=== PATIENT | male | born 1960 | race Two or more races ===

== ENCOUNTER 2018-03-19 04:16 | Emergency (ER) | payer SELFPAY ==
[2018-03-19 04:35] VITALS: RESP 16
[2018-03-19 04:36] VITALS: O2SAT 100
--- NOTE | 2018-03-19 06:27 | ED PDOC ---
HPI: Psych/Substance Abuse Time Seen by Provider: 03/19/18 04:20 Chief Complaint (Nursing): Alcohol Ingestion Chief Complaint (Provider): Alcohol Ingestion History Per: Patient History/Exam Limitations: no limitations Onset/Duration Of Symptoms: Hrs Current Symptoms Are (Timing): Better Modifying Factor(s): Alcohol Additional Complaint(s): 57 year old homeless male was brought to the ER for possible alcohol intoxication. He admits to drinking alcohol today Patient does not have any other complaints, head injury or fall. PMD: No Family Provider Past Medical History Reviewed: Historical Data, Nursing Documentation, Vital Signs Vital Signs: Last Vital Signs Temp 98.1 F 03/19/18 04:32 Pulse 85 03/19/18 04:32 Resp 16 03/19/18 04:32 BP 195/95 H 03/19/18 04:32 Pulse Ox 100 03/19/18 04:32 - Medical History PMH: No Chronic Diseases - Surgical History Surgical History: No Surg Hx - Family History Family History: States: Unknown Family Hx - Social History Current smoker - smoking cessation education provided: Yes (a pack and half) Alcohol: Social Drugs: Denies - Allergies Allergies/Adverse Reactions: Allergies Allergy/AdvReac Type Severity Reaction Status Date / Time Unobtainable Allergy Verified 03/19/18 04:35 Review of Systems ROS Statement: Except As Marked, All Systems Reviewed And Found Negative Neurological: Negative for: Other (head injury) Psych: Negative for: Suicidal ideation (homicidal ideation ) Physical Exam - Reviewed Nursing Documentation Reviewed: Yes Vital Signs Reviewed: Yes - Physical Exam Appears: Positive for: Non-toxic (disheveled), No Acute Distress (disheveled) Head Exam: Positive for: ATRAUMATIC, NORMAL INSPECTION, NORMOCEPHALIC Skin: Positive for: Normal Color, Warm, Dry Eye Exam: Positive for: EOMI, Normal appearance, PERRL ENT: Positive for: Normal ENT Inspection Neck: Positive for: Normal, Painless ROM, Supple. Negative for: Decreased ROM Cardiovascular/Chest: Positive for: Regular Rate, Rhythm. Negative for: Murmur Respiratory: Positive for: Normal Breath Sounds. Negative for: Decreased Breath Sounds, Wheezing, Respiratory Distress Gastrointestinal/Abdominal: Positive for: Normal Exam, Bowel Sounds, Soft. Negative for: Tenderness, Guarding, Rebound Back: Positive for: Normal Inspection Extremity: Positive for: Normal ROM. Negative for: Tenderness, Pedal Edema, Deformity Neurologic/Psych: Positive for: Alert, Oriented (x3) - Laboratory Results Result Diagrams: 03/19/18 06:30 03/19/18 06:27 - ECG O2 Sat by Pulse Oximetry: 100 (RA) Pulse Ox Interpretation: Normal Medical Decision Making Medical Decision Making: Time: 528 Initial Plan: alcohol ingestion rule out electrolyte abnormality, pending sobriety \--Alcohol Serum --Accucheck --CBC w/ Differential --CMP --Reevaluation Time: 07 etoh 35 pt awake, alert, coherent, in no distress. stable gait. pt denies headache, dizziness, or recent trauma. pt will be dc-ed home. pts bp elevated. instructed need to follow up in the clinic for further management of bp. DX: alcohol intoxication, elevated bp Scribe Attestation: Documented by Long Mathias, acting as a scribe for Maribell Ortega MD. Provider Scribe Attestation: All medical record entries made by the Scribe were at my direction and personally dictated by me. I have reviewed the chart and agree that the record accurately reflects my personal performance of the history, physical exam, medical decision making, and the department course for this patient. I have also personally directed, reviewed, and agree with the discharge instructions and disposition. Disposition - Clinical Impression Clinical Impression: Alcohol ingestion - Patient ED Disposition Is Patient to be Admitted: No Counseled Patient/Family Regarding: Studies Performed, Diagnosis, Need For Followup - Disposition Referrals: [facility] [Outside] [facility] [Outside] Disposition: Transfer of Care Disposition Time: 07:00 Condition: IMPROVED Additional Instructions: follow up in the clinic in 2 days you will need management of your blood pressure return to the ED with any worsening or concerning symptoms Instructions: Alcohol Use - When Is Drinking a Problem? Forms: [facility] (C[place] Rican) Patient Signed Over To: Nancy Lemus Handoff Comments: pending sobriety
[2018-03-19 06:44] LABS: BASO # 0.1 K/uL (0.0-0.2); BASO % 0.7 % (0.0-2.0); EOS # 0.7 K/uL (0.0-0.7); EOS % 7.8 % (0.0-4.0); LYMPH # 1.9 K/uL (1.0-4.3); LYMPH % 22.3 % (20.0-40.0); MEAN CELL VOLUME 96.6 fl (80.0-94.0); MEAN CORPUSCULAR HEMOGLOBIN 33.4 pg (27.0-31.0); MEAN CORPUSCULAR HGB CONC 34.6 g/dL (33.0-37.0); MEAN PLATELET VOLUME 9.7 fl (7.2-11.7); MONO # 0.8 K/uL (0.0-0.8); MONO % 9.5 % (0.0-10.0); NEUT % 59.7 % (50.0-75.0); RBC 4.2 Mil/uL (4.40-5.90); RED CELL DISTRIBUTION WIDTH 13.5 % (11.5-14.5); WHITE BLOOD COUNT 8.4 K/uL (4.8-10.8)
[2018-03-19 06:59] LABS: ALB/GLOB RATIO 1.3 (1.0-2.1); ALBUMIN 3.8 g/dL (3.5-5.0); ALT/SGPT 36 U/L (21-72); AST/SGOT 68 U/L (17-59); BLOOD UREA NITROGEN 2 mg/dl (9-20); CALCIUM 8.8 mg/dL (8.4-10.2); GFR NON-AFRICAN AMERICAN > 60
[2018-03-19 07:20] VITALS: BP 154/96
[2018-03-19 07:29] VITALS: PULSE 82; TEMP 98.4
== END 2018-03-19 07:29 | disposition home or self-care (01) ==
LOC: H.ER 04:16
DX: F10.129 Alcohol abuse with intoxication, unspecified (principal); F17.200 Nicotine dependence, unspecified, uncomplicated; Z59.0 Homelessness
CPT/HCPCS: 80053; 85025; 99283; G0480

== ENCOUNTER 2018-05-02 20:33 | Emergency (ER) | payer MEDICAID ==
[2018-05-02 21:47] VITALS: TEMP 97.9
[2018-05-02 21:49] LABS: BASO # 0.1 K/uL (0.0-0.2); BASO % 1.1 % (0.0-2.0); EOS # 0.6 K/uL (0.0-0.7); EOS % 6.1 % (0.0-4.0); HEMOGLOBIN 12.9 g/dL (12.0-18.0); LYMPH # 1.8 K/uL (1.0-4.3); LYMPH % 18.9 % (20.0-40.0); MEAN CELL VOLUME 95.6 fl (80.0-94.0); MEAN CORPUSCULAR HEMOGLOBIN 33.3 pg (27.0-31.0); MEAN CORPUSCULAR HGB CONC 34.8 g/dL (33.0-37.0); MEAN PLATELET VOLUME 8.5 fl (7.2-11.7); MONO % 10.5 % (0.0-10.0); NEUT # 5.9 K/uL (1.8-7.0); NEUT % 63.4 % (50.0-75.0); NRBC % 0.1 % (0.0-0.0); RBC 3.86 Mil/uL (4.40-5.90); RED CELL DISTRIBUTION WIDTH 13.1 % (11.5-14.5); WHITE BLOOD COUNT 9.4 K/uL (4.8-10.8)
[2018-05-02 22:08] LABS: ALB/GLOB RATIO 1.1 (1.0-2.1); ALBUMIN 3.9 g/dL (3.5-5.0); BLOOD UREA NITROGEN 12 mg/dl (9-20); CALCIUM 8.6 mg/dL (8.4-10.2); GFR NON-AFRICAN AMERICAN > 60
[2018-05-02 22:21] LABS: ALT/SGPT 22 U/L (21-72); AST/SGOT 47 U/L (17-59)
[2018-05-02 22:57] VITALS: RESP 18
--- NOTE | 2018-05-03 04:20 | ED PDOC ---
HPI: Psych/Substance Abuse Time Seen by Provider: 05/02/18 20:49 Chief Complaint (Nursing): Substance Abuse Chief Complaint (Provider): etoh History Per: EMS Additional Complaint(s): 57 y/o male brought in by EMS for suspected alcohol intoxication. +Alcohol on breath. HPI slightly limited due to patient's current state Past Medical History Reviewed: Historical Data, Nursing Documentation, Vital Signs Vital Signs: Last Vital Signs Temp 97.9 F 05/02/18 21:06 Pulse 74 05/03/18 03:12 Resp 18 05/03/18 03:12 BP 116/72 05/03/18 03:12 Pulse Ox 95 05/03/18 03:12 - Medical History PMH: No Chronic Diseases - Family History Family History: States: No Known Family Hx - Allergies Allergies/Adverse Reactions: Allergies Allergy/AdvReac Type Severity Reaction Status Date / Time Unobtainable Allergy Verified 05/03/18 08:50 Review of Systems ROS Statement: Except As Marked, All Systems Reviewed And Found Negative Physical Exam - Reviewed Nursing Documentation Reviewed: Yes Vital Signs Reviewed: Yes - Physical Exam Appears: Positive for: Well, Non-toxic, No Acute Distress (sleeping) Head Exam: Positive for: ATRAUMATIC, NORMAL INSPECTION, NORMOCEPHALIC Skin: Positive for: Normal Color Eye Exam: Positive for: Normal appearance, EOMI, PERRL ENT: Positive for: Normal ENT Inspection Cardiovascular/Chest: Positive for: Regular Rate, Rhythm Respiratory: Positive for: Normal Breath Sounds Gastrointestinal/Abdominal: Positive for: Normal Exam Back: Positive for: Normal Inspection Extremity: Positive for: Normal ROM Neurologic/Psych: Positive for: Alert (responds to tactile stimuli) - Laboratory Results Result Diagrams: 05/02/18 21:44 05/02/18 21:44 - ECG O2 Sat by Pulse Oximetry: 95 - Progress ED Course And Treament: labs, accucheck 22:30 Patient sleeping; vitals stable on monitor 05/03/18 00:00 Patient sleeping; vitals stable on monitor 1:30 Patient sleeping; vitals stable on monitor 3:00 Patient awake, no distress 5:00 Patient awake, alert, oriented x3. Ambulating steady gait. Vitals stable Patient requires no further intervention in the ED and is stable for discharge at this time Disposition - Clinical Impression Clinical Impression: Alcohol abuse with intoxication - Patient ED Disposition Is Patient to be Admitted: No Counseled Patient/Family Regarding: Studies Performed, Diagnosis, Need For Followup - Disposition Disposition: Routine/Home Disposition Time: 05:00 Condition: STABLE Instructions: Alcohol Abuse and Alcoholism (DC)
[2018-05-03 10:50] VITALS: BP 112/52; PULSE 81
[2018-05-09 03:21] VITALS: O2SAT 95
== END 2018-05-03 06:30 | disposition home or self-care (01) ==
LOC: MERGE 20:33 → H.ER 20:33 → EDBD 20:33 → H.ER 05-03 06:30
DX: F10.129 Alcohol abuse with intoxication, unspecified (principal)

== ENCOUNTER 2018-06-10 20:43 | Emergency (ER) | payer MEDICAID ==
[2018-06-10 20:43] VITALS: BMI 21.1
[2018-06-10 20:49] VITALS: TEMP 98
--- NOTE | 2018-06-10 22:38 | ED PDOC ---
HPI: Psych/Substance Abuse Time Seen by Provider: 06/10/18 20:47 Chief Complaint (Nursing): Alcohol Ingestion Chief Complaint (Provider): Alcohol Ingestion ED Caveat: Intoxicated, Uncooperative History Per: EMS History/Exam Limitations: intoxication Onset/Duration Of Symptoms: Hrs Current Symptoms Are (Timing): Still Present Modifying Factor(s): Alcohol Additional Complaint(s): George Anthony is a 57 year old male well known to the ED and provider for multiple visits who was brought to the ED by EMS for evaluation of alcohol intoxication. Patient is uncooperative and not answering any questions. Further history is unobtainable due to patients intoxication and uncooperative behavior. MD: none provided Past Medical History Reviewed: Historical Data, Nursing Documentation, Vital Signs, Unable To Obtain Vital Signs: Last Vital Signs Temp 98.0 F 06/10/18 20:46 Pulse 74 06/10/18 21:48 Resp 20 06/10/18 21:48 BP 112/67 06/10/18 21:48 Pulse Ox 100 06/10/18 21:48 - Medical History PMH: Depression, Hypothyroidism, Pneumonia, Schizophrenia Denies: Diabetes, Hepatitis, HIV, HTN, Chronic Kidney Disease, Seizures, Sexually Transmitted Disease - Surgical History Surgical History: No Surg Hx - Family History Family History: States: Unknown Family Hx - Home Medications Home Medications: Ambulatory Orders Medication Instructions Recorded LORazepam [Ativan] 1 mg PO BID #28 tab 09/11/16 Levothyroxine [Synthroid] 25 mcg PO DAILY@0630 #14 tab 09/11/16 Risperidone [Risperdal] 3 mg PO BID #28 tablet 09/11/16 DiphenhydrAMINE [Benadryl] 25 mg PO ASDIR #1 packet 11/03/16 Hydrocortisone [Cortizone 2.5% 1 applic TOP TID #1 tube 11/03/16 CREAM] risperiDONE [RisperDAL Tab] 2 mg PO BID 30 Days #60 tab 05/12/17 Famotidine [Pepcid] 40 mg PO DAILY PRN #14 tab 08/06/17 Ondansetron ODT [Zofran ODT] 1 odt PO Q6 PRN #20 odt 08/06/17 Azithromycin [Zithromax] 250 mg PO DAILY #6 tab 05/10/18 Benzonatate 200 mg PO TID PRN #20 capsule 05/10/18 Azithromycin 250 mg PO DAILY #4 tablet 05/19/18 - Allergies Allergies/Adverse Reactions: Allergies Allergy/AdvReac Type Severity Reaction Status Date / Time No Known Allergies Allergy Verified 06/10/18 20:45 Review of Systems ROS Statement: Except As Marked, All Systems Reviewed And Found Negative Review Of Systems: ROS cannot be obtained secondary to pt's inabilty to answer questions. Physical Exam - Reviewed Nursing Documentation Reviewed: Yes Vital Signs Reviewed: Yes - Physical Exam Appears: Positive for: Non-toxic, No Acute Distress (intoxicated appearing) Head Exam: Positive for: ATRAUMATIC, NORMAL INSPECTION, NORMOCEPHALIC Skin: Positive for: Normal Color, Warm, Dry Eye Exam: Positive for: EOMI, Normal appearance, PERRL Neck: Positive for: Normal, Painless ROM, Supple Cardiovascular/Chest: Positive for: Regular Rate, Rhythm. Negative for: Murmur Respiratory: Positive for: Normal Breath Sounds. Negative for: Respiratory Distress Gastrointestinal/Abdominal: Positive for: Normal Exam, Soft. Negative for: Tenderness Extremity: Positive for: Normal ROM. Negative for: Deformity, Swelling Neurologic/Psych: Positive for: Alert, Gait (unsteady), Other (slurred speech, verbally abusive in ED, uncooperative). Negative for: Motor/Sensory Deficits - ECG O2 Sat by Pulse Oximetry: 100 (RA) Pulse Ox Interpretation: Normal - Critical Care Total Time (In Min): 30 Documented Critical Care: Time excludes all time spent performint seperately billable procedures Medical Decision Making Medical Decision Making: Time: 20:50 Impression: 57 year old male presenting for alcohol intoxication Plan: --Alcohol Serum --Glucose, POC --Ativan 2 mg IM --Haldol 5 mg IM --1:1 Observation --Accucheck Patient is verbally abusive in the ED and uncooperative. He proves to be a danger to himself and others, requiring chemical and physical sedation. 5:40 Patient is clinically sober for discharge home. Diagnosis is alcohol intoxication. Return precautions provided. Scribe Attestation: Documented by Ileana Vides, acting as a scribe for Ortiz Sprague MD. Provider Scribe Attestation: All medical record entries made by the Scribe were at my direction and personally dictated by me. I have reviewed the chart and agree that the record accurately reflects my personal performance of the history, physical exam, medical decision making, and the department course for this patient. I have also personally directed, reviewed, and agree with the discharge instructions and disposition. Disposition - Clinical Impression Clinical Impression: Alcohol abuse with intoxication delirium - Disposition Disposition Time: 05:40 Condition: STABLE Instructions: Alcohol Abuse and Alcoholism (DC) Forms: [facility] (Congolese)
[2018-06-11 04:37] VITALS: PULSE 66
[2018-06-11 04:38] VITALS: BP 106/63; RESP 17; O2SAT 100
== END 2018-06-11 06:05 | disposition home or self-care (01) ==
LOC: H.ER 20:43
DX: F10.129 Alcohol abuse with intoxication, unspecified (principal); Z86.59 Personal history of other mental and behavioral disorders; E03.9 Hypothyroidism, unspecified
CPT/HCPCS: 80320; 82948; 96372; 99284; J1630; J2060

== ENCOUNTER 2018-06-11 12:40 | Emergency (ER) | payer MEDICAID ==
[2018-06-11 12:40] VITALS: BMI 21.1
[2018-06-11 12:45] VITALS: PULSE 75
--- NOTE | 2018-06-11 14:03 | ED PDOC ---
HPI: Psych/Substance Abuse Time Seen by Provider: 06/11/18 13:08 Chief Complaint (Nursing): Alcohol Ingestion Chief Complaint (Provider): Alcohol Ingestion ED Caveat: Intoxicated History Per: Patient, EMS History/Exam Limitations: intoxication Current Symptoms Are (Timing): Still Present Modifying Factor(s): Alcohol Additional Complaint(s): 57 year old male with pmHx of alcohol abuse, depression, and schizophrenia, arrives to ED via EMS for an evaluation of alcohol intoxication. As per EMS, patient was found wandering the streets with an unsteady gait. Upon arrival to ED, a bottle of Azul was removed and discarded by RN from pocket. Patient is noted to be sleepy, refusing to answer questions, but shakes head when asked about bodily pain or fall. PCP: none provided Past Medical History Reviewed: Historical Data, Nursing Documentation, Vital Signs Vital Signs: Last Vital Signs Temp Pulse 75 06/11/18 12:43 Resp 18 06/11/18 12:43 BP 118/70 06/11/18 12:43 Pulse Ox 96 06/11/18 12:43 - Medical History PMH: Depression, Hypothyroidism, Pneumonia, Schizophrenia Denies: Diabetes, Hepatitis, HIV, HTN, Chronic Kidney Disease, Seizures, Sexually Transmitted Disease - Family History Family History: States: Unknown Family Hx - Home Medications Home Medications: Ambulatory Orders Medication Instructions Recorded LORazepam [Ativan] 1 mg PO BID #28 tab 09/11/16 Levothyroxine [Synthroid] 25 mcg PO DAILY@0630 #14 tab 09/11/16 Risperidone [Risperdal] 3 mg PO BID #28 tablet 09/11/16 DiphenhydrAMINE [Benadryl] 25 mg PO ASDIR #1 packet 11/03/16 Hydrocortisone [Cortizone 2.5% 1 applic TOP TID #1 tube 11/03/16 CREAM] risperiDONE [RisperDAL Tab] 2 mg PO BID 30 Days #60 tab 05/12/17 Famotidine [Pepcid] 40 mg PO DAILY PRN #14 tab 08/06/17 Ondansetron ODT [Zofran ODT] 1 odt PO Q6 PRN #20 odt 08/06/17 Azithromycin [Zithromax] 250 mg PO DAILY #6 tab 05/10/18 Benzonatate 200 mg PO TID PRN #20 capsule 05/10/18 Azithromycin 250 mg PO DAILY #4 tablet 05/19/18 - Allergies Allergies/Adverse Reactions: Allergies Allergy/AdvReac Type Severity Reaction Status Date / Time No Known Allergies Allergy Verified 06/10/18 20:45 Review of Systems Review Of Systems: ROS cannot be obtained secondary to pt's inabilty to answer questions. Physical Exam - Reviewed Nursing Documentation Reviewed: Yes Vital Signs Reviewed: Yes - Physical Exam Appears: Positive for: Non-toxic, No Acute Distress Head Exam: Positive for: ATRAUMATIC, NORMAL INSPECTION, NORMOCEPHALIC Skin: Positive for: Normal Color Eye Exam: Positive for: Conjunctival injection (bilaterally) ENT: Positive for: Normal ENT Inspection Cardiovascular/Chest: Positive for: Regular Rate, Rhythm Respiratory: Positive for: Normal Breath Sounds. Negative for: Wheezing, Respiratory Distress Gastrointestinal/Abdominal: Positive for: Normal Exam, Soft. Negative for: Tenderness Extremity: Positive for: Normal ROM (upper/lower) Neurologic/Psych: Positive for: Alert, Oriented, Mood/Affect (somnolent) - ECG O2 Sat by Pulse Oximetry: 96 (RA) Pulse Ox Interpretation: Normal Medical Decision Making Medical Decision Making: Time: 1345 Initial Plan: * Alcohol serum * Accucheck Time: 1400 --Alcohol: 227mg/dL. Patient is seen ambulating to bathroom with steady gait. Upon provider reevaluation, patient is clinically sober, medically stable, and requires no further treatment in the ED at this time. Patient will be discharged home. Counseling was provided and all questions were answered regarding diagnosis. There is agreement to discharge plan. Return if symptoms persist or worsen. Clinical Impression: Alcohol abuse with alcohol-induced disorder --- Scribe Attestation: Documented by Eda Hendrix, acting as a scribe for GAVINO Reed. Provider Scribe Attestation: All medical record entries made by the Scribe were at my direction and personally dictated by me. I have reviewed the chart and agree that the record accurately reflects my personal performance of the history, physical exam, medical decision making, and the department course for this patient. I have also personally directed, reviewed, and agree with the discharge instructions Disposition - Clinical Impression Clinical Impression: Alcohol abuse with alcohol-induced disorder - Patient ED Disposition Is Patient to be Admitted: No Counseled Patient/Family Regarding: Studies Performed, Diagnosis - Disposition Referrals: [facility] [Outside] Disposition: Routine/Home Disposition Time: 14:00 Condition: IMPROVED Additional Instructions: Recommend that you seek assistance with quitting alcohol. Instructions: Alcohol Abuse and Alcoholism (DC) Forms: [facility] (Tajik) Print Language: BRAZILIAN
[2018-06-11 15:02] VITALS: BP 121/81; RESP 15; O2SAT 98
== END 2018-06-11 15:01 | disposition home or self-care (01) ==
LOC: H.ER 12:40
DX: F10.188 Alcohol abuse with other alcohol-induced disorder (principal); E03.9 Hypothyroidism, unspecified; F20.9 Schizophrenia, unspecified; F32.9 Major depressive disorder, single episode, unspecified

== ENCOUNTER 2018-06-19 13:22 | Emergency (ER) | payer MEDICAID ==
[2018-06-19 13:22] VITALS: BMI 21.1
[2018-06-19] MEDS ORDERED: Permethrin 1% Kit 59 ML BOTTLE TOP ONE (14:26)
[2018-06-19 14:38] VITALS: RESP 18
--- NOTE | 2018-06-19 15:56 | ED PDOC ---
HPI: Psych/Substance Abuse Time Seen by Provider: 06/19/18 13:39 Chief Complaint (Nursing): Abnormal Skin Integrity Chief Complaint (Provider): Scalp itchiness History Per: Patient History/Exam Limitations: no limitations Onset/Duration Of Symptoms: Days Current Symptoms Are (Timing): Still Present Additional Complaint(s): 57 year old undomiciled male presents to the ED requesting a decontamination shower due to concern for lice. Patient reports he has had mild scalp itchiness for the past few days. [place], which prompted his concern for exposure to lice. Patient denies any other complaints. PMD: no family provider Past Medical History Reviewed: Historical Data, Nursing Documentation, Vital Signs Vital Signs: Last Vital Signs Temp 97.7 F 06/19/18 14:37 Pulse 80 06/19/18 14:37 Resp 18 06/19/18 14:37 BP 155/78 H 06/19/18 14:37 Pulse Ox 97 06/19/18 14:37 - Medical History PMH: Depression, Hypothyroidism, Pneumonia, Schizophrenia - Family History Family History: States: Unknown Family Hx - Living Arrangements Living Arrangements: Other (usp) - Social History Current smoker - smoking cessation education provided: Yes - Home Medications Home Medications: Ambulatory Orders Medication Instructions Recorded RX: LORazepam [Ativan] 1 mg PO BID #28 tab 09/11/16 RX: Levothyroxine [Synthroid] 25 mcg PO DAILY@0630 #14 tab 09/11/16 Risperidone [Risperdal] 3 mg PO BID #28 tablet 09/11/16 RX: DiphenhydrAMINE [Benadryl] 25 mg PO ASDIR #1 packet 11/03/16 RX: Hydrocortisone [Cortizone 2.5% 1 applic TOP TID #1 tube 11/03/16 CREAM] RX: risperiDONE [RisperDAL Tab] 2 mg PO BID 30 Days #60 tab 05/12/17 Famotidine [Pepcid] 40 mg PO DAILY PRN #14 tab 08/06/17 Ondansetron ODT [Zofran ODT] 1 odt PO Q6 PRN #20 odt 08/06/17 Azithromycin [Zithromax] 250 mg PO DAILY #6 tab 05/10/18 RX: Benzonatate 200 mg PO TID PRN #20 capsule 05/10/18 RX: Azithromycin 250 mg PO DAILY #4 tablet 05/19/18 RX: Permethrin 1% Kit [Nix 59 ml TP ONCE #1 kit 06/19/18 Complete Lice Elimination Kit 1%] - Allergies Allergies/Adverse Reactions: Allergies Allergy/AdvReac Type Severity Reaction Status Date / Time No Known Allergies Allergy Verified 06/10/18 20:45 Review of Systems ROS Statement: Except As Marked, All Systems Reviewed And Found Negative Constitutional: Negative for: Fever Respiratory: Negative for: Cough, Shortness of Breath Gastrointestinal: Negative for: Nausea, Vomiting, Abdominal Pain, Diarrhea Skin: Positive for: Other (mild scalp itchiness) Neurological: Negative for: Headache Physical Exam - Reviewed Nursing Documentation Reviewed: Yes Vital Signs Reviewed: Yes - Physical Exam Comments: GENERAL APPEARANCE: Patient is awake, alert, oriented x 3, in no acute distress, resting comfortably. SKIN: Warm, dry; (-) cyanosis HEAD: (-) hematoma or tenderness. (+) scattered excoriations (-)evidence of cellulitis. No visualized lice or eggs however PE s/p from decon shower ENMT: Mucous membranes moist. Airway patent: (-) stridor. NECK: Supple, FROM HEART AND CARDIOVASCULAR: (-) irregularity CHEST AND RESPIRATORY: (-) rales, (-) rhonchi, (-) wheezes; breath sounds equal. Respirations even and nonlabored. ABDOMEN: Soft, (-) distention, (-) tenderness, (-) guarding. NEURO AND PSYCH: Mental status as above.Affect: flat. (-) facial asymmetry. Speech: clear. Gait: steady. - ECG O2 Sat by Pulse Oximetry: 97 (RA) Pulse Ox Interpretation: Normal Medical Decision Making Medical Decision Making: Time: 1425 Initial impression: concern for lice, scalp irriataion Initial plan: Permethrin 1% kit Reevaluation 1540 Repeat BP: 138/78 On re-evaluation, patient reports improvement of symptoms. On exam, patient remains AAOx3, in no acute distress. Vitals stable. Lab /Diagnostic results d/w the patient in great detail. Diagnosis of scalp irritation, concern for lice d/w the patient. Based on history, exam and diagnostic results, plan will be for outpatient follow up with clinic. Patient instructed to follow-up with pmd / referral provided / the clinic in 1- 2 days without fail. Advised to take medication as prescribed. Return to the emergency room at any time for any new or worsening symptoms. Patient states he fully agrees with and understands discharge instructions. States that he agrees with the plan and disposition. Verbalized and repeated discharge instructions and plan. I have given the patient opportunity to ask any additional questions. -- Scribe Attestation: Documented by Long Mathias, acting as a scribe for Kathy Zaman PA-C. Provider Scribe Attestation: All medical record entries made by the Scribe were at my direction and personally dictated by me. I have reviewed the chart and agree that the record accurately reflects my personal performance of the history, physical exam, medical decision making, and the department course for this patient. I have also personally directed, reviewed, and agree with the discharge instructions and disposition. Disposition - Clinical Impression Clinical Impression: Scalp irritation, Head lice - Patient ED Disposition Is Patient to be Admitted: No Counseled Patient/Family Regarding: Studies Performed, Diagnosis, Need For Foll owup, Rx Given - Disposition Referrals: [facility] [Outside] Disposition: Routine/Home Disposition Time: 15:40 Condition: STABLE Additional Instructions: The emergency medical care you received today was directed at your acute symptoms. If you were prescribed any medication, please fill it and take as directed. It may take several days for your symptoms to resolve. Return to the Emergency Department if your symptoms worsen, do not improve, or if you have any other problems. Please contact your doctor in 2 days for re-evaluation and follow up / or call one of the physicians/clinics you have been referred to that are listed on the Patient Visit Information form that is included in your discharge packet. Bring any paperwork you were given at discharge with you along with any medications you are taking to your follow up visit. Our treatment cannot replace ongoing medical care by a primary care provider (PCP) outside of the emergency department. Prescriptions: RX: Permethrin 1% Kit [Nix Complete Lice Elimination Kit 1%] 59 ml TP ONCE #1 kit Instructions: Lice, Head Lice (DC) Forms: [facility] (Spanish) Print Language: LITHUANIAN - POA Present On Arrival: None
[2018-06-19 16:28] VITALS: BP 138/78; PULSE 78; TEMP 97.9
[2018-06-19 19:34] VITALS: O2SAT 97
== END 2018-06-19 17:29 | disposition home or self-care (01) ==
LOC: H.ER 13:22
DX: B85.0 Pediculosis due to Pediculus humanus capitis (principal); F17.200 Nicotine dependence, unspecified, uncomplicated; Z86.59 Personal history of other mental and behavioral disorders; E03.9 Hypothyroidism, unspecified

== ENCOUNTER 2018-08-09 22:56 | Emergency (ER) | payer MEDICAID ==
[2018-08-09 22:57] VITALS: BMI 21.1
[2018-08-09 23:05] VITALS: RESP 16; O2SAT 99
[2018-08-09] MEDS ORDERED: Permethrin 5% CREAM TOP ONE (23:07)
--- NOTE | 2018-08-10 00:01 | ED PDOC ---
HPI: Skin/Bite Injury Time Seen by Provider: 08/09/18 23:06 Chief Complaint (Nursing): Abnormal Skin Integrity Chief Complaint (Provider): Abnormal Skin Integrity History Per: Patient History/Exam Limitations: no limitations Onset/Duration Of Symptoms: Unknown Additional Complaint(s): 57 y/o male with no significant PMHx presents to the ED complaining of skin abnormality, unknown onset. Patient reports having an itchy rash throughout his body. [facility]. He has no known sick contacts. Additionally denies fever. Past Medical History Reviewed: Historical Data, Nursing Documentation, Vital Signs Vital Signs: Last Vital Signs Temp 98.7 F 08/09/18 23:00 Pulse 91 H 08/09/18 23:00 Resp 16 08/09/18 23:00 BP 121/66 08/09/18 23:00 Pulse Ox 99 08/09/18 23:00 - Medical History PMH: Depression, Hypothyroidism, Pneumonia, Schizophrenia Denies: Diabetes, Hepatitis, HIV, HTN, Chronic Kidney Disease, Seizures, Sexually Transmitted Disease - Surgical History Surgical History: No Surg Hx - Family History Family History: States: Unknown Family Hx - Home Medications Home Medications: Ambulatory Orders Medication Instructions Recorded LORazepam [Ativan] 1 mg PO BID #28 tab 09/11/16 Levothyroxine [Synthroid] 25 mcg PO DAILY@0630 #14 tab 09/11/16 Risperidone [Risperdal] 3 mg PO BID #28 tablet 09/11/16 DiphenhydrAMINE [Benadryl] 25 mg PO ASDIR #1 packet 11/03/16 Hydrocortisone [Cortizone 2.5% 1 applic TOP TID #1 tube 11/03/16 CREAM] risperiDONE [RisperDAL Tab] 2 mg PO BID 30 Days #60 tab 05/12/17 Famotidine [Pepcid] 40 mg PO DAILY PRN #14 tab 08/06/17 Ondansetron ODT [Zofran ODT] 1 odt PO Q6 PRN #20 odt 08/06/17 Azithromycin [Zithromax] 250 mg PO DAILY #6 tab 05/10/18 Benzonatate 200 mg PO TID PRN #20 capsule 05/10/18 Azithromycin 250 mg PO DAILY #4 tablet 05/19/18 Permethrin 1% Kit [Nix Complete 59 ml TP ONCE #1 kit 06/19/18 Lice Elimination Kit 1%] - Allergies Allergies/Adverse Reactions: Allergies Allergy/AdvReac Type Severity Reaction Status Date / Time No Known Allergies Allergy Verified 08/09/18 23:00 Review of Systems ROS Statement: Except As Marked, All Systems Reviewed And Found Negative Constitutional: Negative for: Fever Skin: Positive for: Rash Physical Exam - Reviewed Nursing Documentation Reviewed: Yes Vital Signs Reviewed: Yes - Physical Exam Appears: Positive for: Well (patient looks unkempt), No Acute Distress Head Exam: Positive for: ATRAUMATIC, NORMAL INSPECTION, NORMOCEPHALIC Skin: Positive for: Rash (scattered excoriations without surrounding erythema, discharge, or swelling throughout body and extremities) ENT: Positive for: Normal ENT Inspection Neck: Positive for: Normal, Painless ROM Cardiovascular/Chest: Positive for: Regular Rate, Rhythm. Negative for: Murmur Respiratory: Negative for: Normal Breath Sounds Extremity: Positive for: Normal ROM. Negative for: Pedal Edema, Deformity Neurologic/Psych: Positive for: Alert, Oriented. Negative for: Motor/Sensory Deficits - ECG O2 Sat by Pulse Oximetry: 99 (RA) Pulse Ox Interpretation: Normal Medical Decision Making Medical Decision Making: Time: 23:07 Impression: skin abnormality Initial Plan: * Permethrin Scribe Attestation: Documented by Ramone Mendoza acting as a scribe for Nik Wilson PA-C. Provider Scribe Attestation: All medical record entries made by the Scribe were at my direction and personally dictated by me. I have reviewed the chart and agree that the record accurately reflects my personal performance of the history, physical exam, medical decision making, and the department course for this patient. I have also personally directed, reviewed, and agree with the discharge instructions and disposition. Disposition - Clinical Impression Clinical Impression: Scabies - Patient ED Disposition Is Patient to be Admitted: No - Disposition Referrals: [facility] [Outside] Disposition: Routine/Home Disposition Time: 23:08 Condition: STABLE Additional Instructions: FOLLOW UP WITH [facility] FOR FURTHER EVALUATION RETURN TO ED IMMEDIATELY IF SYMPTOMS WORSEN LAW ERICKANURIS, thank you for letting us take care of you today. Your provider was Live Garcia MD and you were treated for SKIN IRRITATION. The emergency medical care you received today was directed at your acute symptoms. If you were prescribed any medication, please fill it and take as directed. It may take several days for your symptoms to resolve. Return to the Emergency Department if your symptoms worsen, do not improve, or if you have any other problems. Please contact your doctor or call one of the physicians/clinics you have been referred to that are listed on the Patient Visit Information form that is included in your discharge packet. Bring any paperwork you were given at discharge with you along with any medications you are taking to your follow up visit. Our treatment cannot replace ongoing medical care by a primary care provider outside of the emergency department. Thank you for allowing the [facility] team to be part of your care today. If you had an X-Ray or CT scan: A Radiologist will review the ED reading if any change in treatment is needed we will contact you. If you had a blood, urine, or wound culture: It will take several days for the results, if any change in treatment is needed we will contact you. If you had an STI test: It will take 48 hours for the results. Please call after 1 week if you have not heard back. Instructions: Scabies (DC) Forms: [employer] (Khmer)
[2018-08-10 01:51] VITALS: BP 122/78; PULSE 76; TEMP 98.4
== END 2018-08-10 00:40 | disposition home or self-care (01) ==
LOC: H.ER 22:56
DX: B86 Scabies (principal)

== ENCOUNTER 2018-08-16 19:14 | Emergency (ER) | payer MEDICAID ==
[2018-08-16 19:14] VITALS: BMI 21.1
[2018-08-16 19:17] VITALS: BP 138/84; PULSE 72; RESP 16; TEMP 98; O2SAT 100
--- NOTE | 2018-08-16 20:20 | ED PDOC ---
HPI: Psych/Substance Abuse Time Seen by Provider: 08/16/18 19:24 Chief Complaint (Nursing): Alcohol Ingestion Chief Complaint (Provider): Alcohol Ingestion ED Caveat: Intoxicated History Per: Patient History/Exam Limitations: intoxication Onset/Duration Of Symptoms: Hrs Current Symptoms Are (Timing): Still Present Additional Complaint(s): 57 year old male who is a known ETOH abuser was brought to the ED by EMS after finding him sleeping in a vestibule of a building. Patient is intoxicated and is unable to answer any questions. Further history is unobtainable. PMD: none provided Past Medical History Reviewed: Historical Data, Nursing Documentation, Vital Signs, Unable To Obtain Vital Signs: Last Vital Signs Temp 98.0 F 08/16/18 19:16 Pulse 72 08/16/18 19:16 Resp 16 08/16/18 19:16 BP 138/84 08/16/18 19:16 Pulse Ox 100 08/16/18 19:16 - Medical History PMH: Depression, Hypothyroidism, Pneumonia, Schizophrenia Denies: Diabetes, Hepatitis, HIV, HTN, Chronic Kidney Disease, Seizures, Sexually Transmitted Disease - Family History Family History: States: Unknown Family Hx - Social History Current smoker - smoking cessation education provided: Yes Alcohol: > 2 Drinks/Day - Home Medications Home Medications: Ambulatory Orders Medication Instructions Recorded LORazepam [Ativan] 1 mg PO BID #28 tab 09/11/16 Levothyroxine [Synthroid] 25 mcg PO DAILY@0630 #14 tab 09/11/16 Risperidone [Risperdal] 3 mg PO BID #28 tablet 09/11/16 DiphenhydrAMINE [Benadryl] 25 mg PO ASDIR #1 packet 11/03/16 Hydrocortisone [Cortizone 2.5% 1 applic TOP TID #1 tube 11/03/16 CREAM] risperiDONE [RisperDAL Tab] 2 mg PO BID 30 Days #60 tab 05/12/17 Famotidine [Pepcid] 40 mg PO DAILY PRN #14 tab 08/06/17 Ondansetron ODT [Zofran ODT] 1 odt PO Q6 PRN #20 odt 08/06/17 Azithromycin [Zithromax] 250 mg PO DAILY #6 tab 05/10/18 Benzonatate 200 mg PO TID PRN #20 capsule 05/10/18 Azithromycin 250 mg PO DAILY #4 tablet 05/19/18 Permethrin 1% Kit [Nix Complete 59 ml TP ONCE #1 kit 06/19/18 Lice Elimination Kit 1%] - Allergies Allergies/Adverse Reactions: Allergies Allergy/AdvReac Type Severity Reaction Status Date / Time No Known Allergies Allergy Verified 08/16/18 19:16 Review of Systems ROS Statement: Except As Marked, All Systems Reviewed And Found Negative Review Of Systems: ROS cannot be obtained secondary to pt's inabilty to answer questions. Physical Exam - Reviewed Nursing Documentation Reviewed: Yes Vital Signs Reviewed: Yes - Physical Exam Appears: Positive for: Non-toxic, No Acute Distress Head Exam: Positive for: ATRAUMATIC, NORMAL INSPECTION, NORMOCEPHALIC Skin: Positive for: Normal Color, Warm, DRY Eye Exam: Positive for: EOMI, Normal appearance, PERRL Cardiovascular/Chest: Positive for: Regular Rate, Rhythm. Negative for: Murmur Respiratory: Positive for: Normal Breath Sounds. Negative for: Respiratory Distress Gastrointestinal/Abdominal: Positive for: Normal Exam, Soft. Negative for: Tenderness Extremity: Positive for: Normal ROM. Negative for: Deformity, Swelling Neurologic/Psych: Positive for: Other (somnolent ). Negative for: Motor/Sensory Deficits - ECG O2 Sat by Pulse Oximetry: 100 (RA) Pulse Ox Interpretation: Normal Medical Decision Making Medical Decision Making: Time: 19:30 Plan: --Accucheck --Alcohol Serum --- Scribe Attestation: Documented by, Ileana Vides acting as a scribe for Renetta Wharton PA-C. Provider Scribe Attestation: All medical record entries made by the Scribe were at my direction and personally dictated by me. I have reviewed the chart and agree that the record accurately reflects my personal performance of the history, physical exam, medical decision making, and the department course for this patient. I have also personally directed, reviewed, and agree with the discharge instructions and disposition. 22:26: re-evaluated: states that he cannot go to the snf. He has no physical complaints. Ambulated with steady gait. Disposition - Clinical Impression Clinical Impression: Alcohol abuse with alcohol-induced disorder - Patient ED Disposition Is Patient to be Admitted: No - Disposition Referrals: [facility] [Outside] Disposition: Routine/Home Disposition Time: 23:50 Condition: STABLE Additional Instructions: Refrain from drinking alcohol any further Instructions: Alcohol Abuse and Alcoholism (DC) Forms: [facility] (Irish) Print Language: HUNGARIAN
== END 2018-08-16 23:50 | disposition home or self-care (01) ==
LOC: H.ER 19:14
DX: F10.10 Alcohol abuse, uncomplicated (principal); E03.9 Hypothyroidism, unspecified; F17.200 Nicotine dependence, unspecified, uncomplicated; F20.9 Schizophrenia, unspecified; F32.9 Major depressive disorder, single episode, unspecified

== ENCOUNTER 2018-10-22 13:36 | Emergency (ER) | payer MEDICAID ==
[2018-10-22 13:36] VITALS: BMI 21.1
[2018-10-22 13:39] VITALS: BP 101/68; PULSE 84; RESP 18; O2SAT 98
--- NOTE | 2018-10-22 14:02 | ED PDOC ---
HPI: Psych/Substance Abuse Time Seen by Provider: 10/22/18 13:39 Chief Complaint (Nursing): Psychiatric Evaluation Chief Complaint (Provider): Psychiatric Evaluation History Per: Patient, EMS History/Exam Limitations: no limitations Onset/Duration Of Symptoms: Unknown Modifying Factor(s): Alcohol Additional Complaint(s): 57 y/o male brought in by EMS for alcohol intoxication. As per EMS, they were called as patient was found by a bystander sleeping on the ground. Patient is well known to provider and ED staff. Patient admits to drinking "a pint of tiffany young". Patient offers no complaints at this time but is requesting food. PMD: NO PROVIDER Past Medical History Reviewed: Historical Data, Nursing Documentation, Vital Signs Vital Signs: Last Vital Signs Temp Pulse 84 10/22/18 13:37 Resp 18 10/22/18 13:37 BP 101/68 10/22/18 13:37 Pulse Ox 98 10/22/18 13:37 - Medical History PMH: Depression, Hypothyroidism, Pneumonia, Schizophrenia Denies: Diabetes, Hepatitis, HIV, HTN, Chronic Kidney Disease, Seizures, Sexually Transmitted Disease - Surgical History Surgical History: No Surg Hx - Family History Family History: States: Unknown Family Hx - Social History Alcohol: > 2 Drinks/Day - Home Medications Home Medications: Ambulatory Orders Medication Instructions Recorded LORazepam [Ativan] 1 mg PO BID #28 tab 09/11/16 Levothyroxine [Synthroid] 25 mcg PO DAILY@0630 #14 tab 09/11/16 Risperidone [Risperdal] 3 mg PO BID #28 tablet 09/11/16 DiphenhydrAMINE [Benadryl] 25 mg PO ASDIR #1 packet 11/03/16 Hydrocortisone [Cortizone 2.5% 1 applic TOP TID #1 tube 11/03/16 CREAM] risperiDONE [RisperDAL Tab] 2 mg PO BID 30 Days #60 tab 05/12/17 Famotidine [Pepcid] 40 mg PO DAILY PRN #14 tab 08/06/17 Ondansetron ODT [Zofran ODT] 1 odt PO Q6 PRN #20 odt 08/06/17 Azithromycin [Zithromax] 250 mg PO DAILY #6 tab 05/10/18 Benzonatate 200 mg PO TID PRN #20 capsule 05/10/18 Azithromycin 250 mg PO DAILY #4 tablet 05/19/18 Permethrin 1% Kit [Nix Complete 59 ml TP ONCE #1 kit 06/19/18 Lice Elimination Kit 1%] - Allergies Allergies/Adverse Reactions: Allergies Allergy/AdvReac Type Severity Reaction Status Date / Time No Known Allergies Allergy Verified 08/16/18 19:16 Review of Systems ROS Statement: Except As Marked, All Systems Reviewed And Found Negative Psych: Positive for: Other (ALCOHOL INTOXICATION) Physical Exam - Reviewed Nursing Documentation Reviewed: Yes Vital Signs Reviewed: Yes - Physical Exam Appears: Positive for: No Acute Distress (but disheveled) Head Exam: Positive for: ATRAUMATIC Skin: Positive for: Normal Color Eye Exam: Positive for: Normal appearance Neck: Positive for: Normal Cardiovascular/Chest: Positive for: Regular Rate, Rhythm. Negative for: Murmur Respiratory: Positive for: Normal Breath Sounds. Negative for: Respiratory Distress Gastrointestinal/Abdominal: Positive for: Normal Exam, Soft. Negative for: Tenderness Extremity: Positive for: Normal ROM (upper/lower) Neurological/Psych: Positive for: Awake, Alert, Oriented (x3), Gait (steady and unassited), Other (slurred speech, alcohol on breath). Negative for: Motor/Sensory Deficits - ECG O2 Sat by Pulse Oximetry: 98 (RA) Pulse Ox Interpretation: Normal Medical Decision Making Medical Decision Making: Time: 1400 Plan: -- Finger Stick -- Finger stick is 71. Scribe Attestation: Documented by Bubba Jain, acting as a scribe Jose Wilson PA-C. Provider Scribe Attestation: All medical record entries made by the Scribe were at my direction and personally dictated by me. I have reviewed the chart and agree that the record accurately reflects my personal performance of the history, physical exam, medical decision making, and the department course for this patient. I have also personally directed, reviewed, and agree with the discharge instructions and disposition. Disposition - Clinical Impression Clinical Impression: Alcohol intoxication - Patient ED Disposition Is Patient to be Admitted: No - Disposition Referrals: [facility] [place] [Outside] Disposition: Routine/Home Disposition Time: 14:00 Condition: STABLE Instructions: Alcohol Use - When Is Drinking a Problem?, Alcohol Abuse and Alcoholism (DC) Forms: [employer] (Maltese)
== END 2018-10-22 14:05 | disposition home or self-care (01) ==
LOC: H.ER 13:36
DX: F10.129 Alcohol abuse with intoxication, unspecified (principal); E03.9 Hypothyroidism, unspecified; F20.9 Schizophrenia, unspecified; F32.9 Major depressive disorder, single episode, unspecified

== ENCOUNTER 2018-10-26 16:57 | Emergency (ER) | payer MEDICAID ==
[2018-10-26 17:01] VITALS: RESP 18; TEMP 97.8; O2SAT 96; BMI 32.5
--- NOTE | 2018-10-26 17:47 | ED PDOC ---
HPI: Psych/Substance Abuse Time Seen by Provider: 10/26/18 16:57 Chief Complaint (Nursing): Alcohol Ingestion Chief Complaint (Provider): Alcohol Intoxication ED Caveat: Intoxicated History Per: EMS History/Exam Limitations: intoxication Current Symptoms Are (Timing): Still Present Additional Complaint(s): 57 year old male with known history of alcohol abuse (seen here four days ago) presents to the ED via EMS for alcohol intoxication. EMS states they found him laying on the ground in a storage facility and when they tried to wake him up, he was stumbling and smelled of alcohol. Due to intoxication and patient not answering questions, history / ROS is limited. PMD: unobtainable Past Medical History Reviewed: Historical Data, Vital Signs Vital Signs: Last Vital Signs Temp 97.8 F 10/26/18 16:59 Pulse 99 H 10/26/18 16:59 Resp 18 10/26/18 16:59 BP 95/70 L 10/26/18 16:59 Pulse Ox 96 10/26/18 16:59 - Medical History PMH: Depression, Hypothyroidism, Pneumonia, Schizophrenia Denies: Diabetes, Hepatitis, HIV, HTN, Chronic Kidney Disease, Seizures, Sexually Transmitted Disease - Family History Family History: States: Unknown Family Hx - Social History Alcohol: Other (hx abuse) - Home Medications Home Medications: Ambulatory Orders Medication Instructions Recorded LORazepam [Ativan] 1 mg PO BID #28 tab 09/11/16 Levothyroxine [Synthroid] 25 mcg PO DAILY@0630 #14 tab 09/11/16 Risperidone [Risperdal] 3 mg PO BID #28 tablet 09/11/16 DiphenhydrAMINE [Benadryl] 25 mg PO ASDIR #1 packet 11/03/16 Hydrocortisone [Cortizone 2.5% 1 applic TOP TID #1 tube 11/03/16 CREAM] risperiDONE [RisperDAL Tab] 2 mg PO BID 30 Days #60 tab 05/12/17 Famotidine [Pepcid] 40 mg PO DAILY PRN #14 tab 08/06/17 Ondansetron ODT [Zofran ODT] 1 odt PO Q6 PRN #20 odt 08/06/17 Azithromycin [Zithromax] 250 mg PO DAILY #6 tab 05/10/18 Benzonatate 200 mg PO TID PRN #20 capsule 05/10/18 Azithromycin 250 mg PO DAILY #4 tablet 05/19/18 Permethrin 1% Kit [Nix Complete 59 ml TP ONCE #1 kit 06/19/18 Lice Elimination Kit 1%] - Allergies Allergies/Adverse Reactions: Allergies Allergy/AdvReac Type Severity Reaction Status Date / Time No Known Allergies Allergy Verified 10/26/18 17:00 Review of Systems Review Of Systems: ROS cannot be obtained secondary to pt's inabilty to answer questions. Physical Exam - Reviewed Nursing Documentation Reviewed: Yes Vital Signs Reviewed: Yes - Physical Exam Appears: Positive for: No Acute Distress (but intoxicated appearing) Head Exam: Positive for: ATRAUMATIC, NORMAL INSPECTION (no obvious signs of injury to head / face), NORMOCEPHALIC Skin: Positive for: Normal Color. Negative for: Rash Eye Exam: Positive for: Normal appearance Neck: Positive for: Normal, Painless ROM Cardiovascular/Chest: Positive for: Regular Rate, Rhythm Respiratory: Positive for: Normal Breath Sounds. Negative for: Respiratory Distress Gastrointestinal/Abdominal: Positive for: Soft. Negative for: Tenderness (no complaints of pain when abdomen palpated) Extremity: Positive for: Normal ROM (all extremities). Negative for: Tendern ess, Deformity (or obvious injuries to any joints or any extremity), Swelling Neurological/Psych: Positive for: Awake, Other (patient acting inappropriately, calling nurse over and trying to grab at her (non-violent); alcohol on breath) - ECG O2 Sat by Pulse Oximetry: 96 (RA) Pulse Ox Interpretation: Normal Medical Decision Making Medical Decision Making: Time: 170 Initial Impression: alcohol intoxication Initial Plan: --Alcohol serum --Accucheck --Pending clinical sobriety Initial: Accucheck: 78 Etoh: [id number]: Patient sleeping, easily arousable. Calm, pending sobriety for D/C. 23:27: Patient awake, ambulating with steady gait. Stable for D/C. ------- Scribe Attestation: Documented by Leah Bell, acting as a scribe for Gloria Null APN. Provider Scribe Attestation: All medical record entries made by the Scribe were at my direction and personally dictated by me. I have reviewed the chart and agree that the record accurately reflects my personal performance of the history, physical exam, medical decision making, and the department course for this patient. I have also personally directed, reviewed, and agree with the discharge instructions and disposition. Disposition - Clinical Impression Clinical Impression: Alcohol use - Patient ED Disposition Is Patient to be Admitted: No Counseled Patient/Family Regarding: Diagnosis - Disposition Disposition: Routine/Home Disposition Time: 23:15 Condition: STABLE Instructions: Alcohol Use - When Is Drinking a Problem? Print Language: QATARI - POA Present On Arrival: None
[2018-10-26 23:34] VITALS: BP 112/71; PULSE 87
== END 2018-10-26 23:15 | disposition home or self-care (01) ==
LOC: H.ER 16:57
DX: F10.129 Alcohol abuse with intoxication, unspecified (principal); E03.9 Hypothyroidism, unspecified; F20.9 Schizophrenia, unspecified; F32.9 Major depressive disorder, single episode, unspecified

== ENCOUNTER 2018-10-31 13:08 | Emergency (ER) | payer MEDICAID ==
[2018-10-31 13:09] VITALS: BMI 32.5
[2018-10-31 13:15] VITALS: BP 110/80; PULSE 80; RESP 18; TEMP 97.9; O2SAT 99
--- NOTE | 2018-10-31 13:52 | ED PDOC ---
HPI: Psych/Substance Abuse Time Seen by Provider: 10/31/18 13:13 Chief Complaint (Nursing): Alcohol Ingestion Chief Complaint (Provider): ETOH Ingestion History Per: Patient, EMS History/Exam Limitations: no limitations Additional Complaint(s): 57 year old male well known to the ED for his history of alcohol abuse/intoxication (last seen 10/26/18) presents via EMS for evaluation of alcohol ingestion. As per EMS, patient was seen sitting on a curb with an open bottle of alcohol, thus brought in for evaluation. Patient admits to drinking today, but otherwise denies any physical complaints, reports of trauma, suicidal ideation, homicidal ideation, and visual or auditory hallucinations. PMD: none provided Past Medical History Reviewed: Historical Data, Nursing Documentation, Vital Signs Vital Signs: Last Vital Signs Temp 97.9 F 10/31/18 13:12 Pulse 80 10/31/18 13:12 Resp 18 10/31/18 13:12 BP 110/80 10/31/18 13:12 Pulse Ox 99 10/31/18 13:12 - Medical History PMH: Depression, Hypothyroidism, Pneumonia, Schizophrenia - Family History Family History: States: Unknown Family Hx - Living Arrangements Living Arrangements: Other (homeless) - Social History Alcohol: Other (hx of abuse) - Home Medications Home Medications: Ambulatory Orders Medication Instructions Recorded LORazepam [Ativan] 1 mg PO BID #28 tab 09/11/16 Levothyroxine [Synthroid] 25 mcg PO DAILY@0630 #14 tab 09/11/16 Risperidone [Risperdal] 3 mg PO BID #28 tablet 09/11/16 DiphenhydrAMINE [Benadryl] 25 mg PO ASDIR #1 packet 11/03/16 Hydrocortisone [Cortizone 2.5% 1 applic TOP TID #1 tube 11/03/16 CREAM] risperiDONE [RisperDAL Tab] 2 mg PO BID 30 Days #60 tab 05/12/17 Famotidine [Pepcid] 40 mg PO DAILY PRN #14 tab 08/06/17 Ondansetron ODT [Zofran ODT] 1 odt PO Q6 PRN #20 odt 08/06/17 Azithromycin [Zithromax] 250 mg PO DAILY #6 tab 05/10/18 Benzonatate 200 mg PO TID PRN #20 capsule 05/10/18 Azithromycin 250 mg PO DAILY #4 tablet 05/19/18 Permethrin 1% Kit [Nix Complete 59 ml TP ONCE #1 kit 06/19/18 Lice Elimination Kit 1%] - Allergies Allergies/Adverse Reactions: Allergies Allergy/AdvReac Type Severity Reaction Status Date / Time No Known Allergies Allergy Verified 10/26/18 17:00 Review of Systems ROS Statement: Except As Marked, All Systems Reviewed And Found Negative Constitutional: Positive for: Other (alcohol ingestion) Psych: Negative for: Suicidal ideation (or homicidal ideation), Other (visual or auditory hallucinations) Physical Exam - Reviewed Nursing Documentation Reviewed: Yes Vital Signs Reviewed: Yes - Physical Exam Comments: GENERAL APPEARANCE: Patient is awake, alert, oriented x 3, in no acute distress. Poor hygiene noted. SKIN: Warm, dry; (-) cyanosis EYES: (-) conjunctival injection ENMT: Mucous membranes moist. Airway patent: (-) stridor. NECK: Supple, FROM HEART AND CARDIOVASCULAR: (-) irregularity CHEST AND RESPIRATORY: (-) rales, (-) rhonchi, (-) wheezes; breath sounds equal. Respirations even and nonlabored. ABDOMEN: Soft, (-) distention, (-) tenderness, (-) guarding. NEURO AND PSYCH: Mental status as above. Affect: calm, cooperative. (-) facial asymmetry. Gait: steady. Speech: clear. - ECG O2 Sat by Pulse Oximetry: 99 (RA) Pulse Ox Interpretation: Normal Medical Decision Making Medical Decision Making: Initial Impression: alcohol ingestion in the setting of alcohol abuse Time: 1350 Initial Plan: --At this time, patient is ambulatory in ED with a steady gait and with no complaints. He is calm, cooperative and answers questions appropriately. Arrangements to be made for discharge, but patient states he does not wish to wait for the discharge papers. Patient exited ED without incident. Based on history, exam and diagnostic results, plan will be for outpatient follow up. Patient instructed to follow-up with pmd / referral provided / the clinic in 1- 2 days without fail. Return to the emergency room at any time for any new or worsening symptoms. Patient states he fully agrees with and understands discharge instructions. States that he agrees with the plan and disposition. Verbalized and repeated discharge instructions and plan. I have given the patient opportunity to ask any additional questions. Scribe Attestation: Documented by Leah Bell, acting as a scribe for Kathy Zaman PA-C. Provider Scribe Attestation: All medical record entries made by the Scribe were at my direction and personally dictated by me. I have reviewed the chart and agree that the record accurately reflects my personal performance of the history, physical exam, medical decision making, and the department course for this patient. I have also personally directed, reviewed, and agree with the discharge instructions and disposition. Disposition - Clinical Impression Clinical Impression: Alcohol abuse, Alcohol ingestion - Patient ED Disposition Is Patient to be Admitted: No Counseled Patient/Family Regarding: Studies Performed, Diagnosis, Need For Followup - Disposition Referrals: Alcoholics Anonymous [Outside] [facility] [Outside] Disposition: Routine/Home Disposition Time: 13:50 Condition: FAIR Additional Instructions: The emergency medical care you received today was directed at your acute symptoms. If you were prescribed any medication, please fill it and take as directed. It may take several days for your symptoms to resolve. Return to the Emergency Department if your symptoms worsen, do not improve, or if you have any other problems. Please contact your doctor in 2 days for re-evaluation and follow up / or call one of the physicians/clinics you have been referred to that are listed on the Patient Visit Information form that is included in your discharge packet. Bring any paperwork you were given at discharge with you along with any medications you are taking to your follow up visit. Our treatment cannot replace ongoing medical care by a primary care provider (PCP) outside of the emergency department. Instructions: Alcohol Use - When Is Drinking a Problem?, Alcohol Abuse and Alcoholism (DC), Effects of Alcohol on Your Health Forms: [employer] (Turkish) Print Language: DOMINICAN - POA Present On Arrival: None
== END 2018-10-31 13:50 | disposition home or self-care (01) ==
LOC: H.ER 13:08
DX: F10.10 Alcohol abuse, uncomplicated (principal); Z86.59 Personal history of other mental and behavioral disorders; E03.9 Hypothyroidism, unspecified

== ENCOUNTER 2018-11-27 16:58 | Emergency (ER) | payer MEDICAID ==
[2018-11-27 16:59] VITALS: BMI 32.5
[2018-11-27 17:01] VITALS: O2SAT 98
--- NOTE | 2018-11-27 17:43 | ED PDOC ---
HPI: Psych/Substance Abuse Time Seen by Provider: 11/27/18 17:06 Chief Complaint (Nursing): Alcohol Ingestion Chief Complaint (Provider): Alcohol intoxication ED Caveat: Intoxicated History/Exam Limitations: intoxication Modifying Factor(s): Alcohol Additional Complaint(s): 58yo male, brought to ER by EMS after patient was found intoxicated and unconscious on the street. Patient is intoxicated but arousable, admits to drinking alcohol today. He states "I feel drunk" but denies any pain or medical complaints. He is requesting to sleep. Past Medical History Reviewed: Historical Data, Nursing Documentation, Vital Signs Vital Signs: Last Vital Signs Temp 98.6 F 11/27/18 17:01 Pulse 84 11/27/18 17:01 Resp 16 11/27/18 17:01 BP 114/64 11/27/18 17:01 Pulse Ox 98 11/27/18 17:01 Primary Care Provider: FAMILY PROVIDER,NO - Medical History PMH: Depression, Hypothyroidism, Pneumonia, Schizophrenia Denies: Diabetes, Hepatitis, HIV, HTN, Chronic Kidney Disease, Seizures, Sexually Transmitted Disease - Surgical History Surgical History: No Surg Hx - Family History Family History: States: Unknown Family Hx - Home Medications Home Medications: Ambulatory Orders Medication Instructions Recorded LORazepam [Ativan] 1 mg PO BID #28 tab 09/11/16 Levothyroxine [Synthroid] 25 mcg PO DAILY@0630 #14 tab 09/11/16 Risperidone [Risperdal] 3 mg PO BID #28 tablet 09/11/16 DiphenhydrAMINE [Benadryl] 25 mg PO ASDIR #1 packet 11/03/16 Hydrocortisone [Cortizone 2.5% 1 applic TOP TID #1 tube 11/03/16 CREAM] risperiDONE [RisperDAL Tab] 2 mg PO BID 30 Days #60 tab 05/12/17 Famotidine [Pepcid] 40 mg PO DAILY PRN #14 tab 08/06/17 Ondansetron ODT [Zofran ODT] 1 odt PO Q6 PRN #20 odt 08/06/17 Azithromycin [Zithromax] 250 mg PO DAILY #6 tab 05/10/18 Benzonatate 200 mg PO TID PRN #20 capsule 05/10/18 Azithromycin 250 mg PO DAILY #4 tablet 05/19/18 Permethrin 1% Kit [Nix Complete 59 ml TP ONCE #1 kit 06/19/18 Lice Elimination Kit 1%] - Allergies Allergies/Adverse Reactions: Allergies Allergy/AdvReac Type Severity Reaction Status Date / Time No Known Allergies Allergy Verified 11/27/18 17:01 Review of Systems ROS Statement: Except As Marked, All Systems Reviewed And Found Negative Physical Exam - Reviewed Nursing Documentation Reviewed: Yes Vital Signs Reviewed: Yes - Physical Exam Appears: Positive for: No Acute Distress Head Exam: Positive for: ATRAUMATIC, NORMAL INSPECTION, NORMOCEPHALIC Skin: Positive for: Normal Color Eye Exam: Positive for: Normal appearance Neck: Positive for: Supple Cardiovascular/Chest: Positive for: Regular Rate, Rhythm. Negative for: Tachycardia Respiratory: Positive for: Normal Breath Sounds. Negative for: Respiratory Distress Gastrointestinal/Abdominal: Positive for: Soft Extremity: Positive for: Normal ROM Neurological/Psych: Positive for: Other (intoxicated but arousable.). Negative for: Motor/Sensory Deficits - ECG O2 Sat by Pulse Oximetry: 98 (RA) Pulse Ox Interpretation: Normal Medical Decision Making Medical Decision Makinyo male brought in by EMS for intoxication No signs of trauma noted Patient unfamiliar to me, will do blood alcohol level to confirm altered mental status is due to intoxication Patient most likely to be discharged if no abnormalities, and patient is sober 1828 Patient is awake, alert and oriented x 3 with steady gait. Patient left ER prior to signing discharge papers. Scribe Attestation: Documented by Chely Cavazos acting as a scribe for Kathy Doe MD. Provider Scribe Attestation: All medical record entries made by the Scribe were at my direction and personally dictated by me. I have reviewed the chart and agree that the record accurately reflects my personal performance of the history, physical exam, medical decision making, and the department course for this patient. I have also personally directed, reviewed, and agree with the discharge instructions and disposition. Disposition - Clinical Impression Clinical Impression: Alcohol ingestion - Disposition Disposition Time: 18:29 Condition: STABLE Forms: [employer] (South [place]ese)
[2018-11-27 20:24] VITALS: BP 122/70; PULSE 82; RESP 18; TEMP 98.4
== END 2018-11-27 18:30 | disposition home or self-care (01) ==
LOC: H.ER 16:58
DX: F10.10 Alcohol abuse, uncomplicated (principal); Z86.59 Personal history of other mental and behavioral disorders; E03.9 Hypothyroidism, unspecified